=== PATIENT | female | born 1965 | race Caucasian/White ===

== ENCOUNTER → 2019-06-04 | Outpatient (CLI) | payer OTHER ==
[~2019-06-04] MED LIST: DIAZ-345 PO; FLUO20CA25 PO; HYDR50TA3; LAMO100T69 PO; LISI1TAB10; LVT.025T PO; PROZAC; SYNTHROID; VALIUM
--- NOTE | 2019-06-04 15:32 | Diagnostic Imaging Report ---
PROCEDURE: US Thyroid. TECHNIQUE: Multiple real-time grayscale images were obtained of the thyroid in various projections. INDICATION: Thyrotoxicosis with multinodular goiter. COMPARISON: No prior studies are available for comparison. FINDINGS: Right lobe of the thyroid measures 5.1 x 2.4 x 3.5 cm and the left lobe measures 4.0 x 2.2 x 2.0 cm. Isthmus is 11 mm in thickness. Both lobes of the thyroid are markedly heterogeneous. No discrete thyroid mass is detected. An area of lump in the posterior neck was also evaluated. There is a hypoechoic circumscribed mass just below the skin surface at this location measuring 2.1 x 1.5 x 0.7 cm. This does demonstrate internal echoes. No definite vascularity is seen. IMPRESSION: 1. Thyromegaly and thyroid heterogeneity without evidence of discrete mass. 2. Circumscribed ovoid hypoechoic mass at the area of palpable abnormality in the posterior neck just below the skin surface, nonspecific. An enlarged sebaceous cyst or perhaps enlarged lymph node cannot be entirely excluded. Close interval clinical follow-up is recommended. If this persists, excisional biopsy could be performed. Dictated by: Dictated on workstation # [id number]
== END ==
LOC: RAD 10:23
PROVIDERS: ATTEND Nurse Practitioner Family
DX: Z00.01 Encounter for general adult medical examination with abnormal findings (principal); E05.20 Thyrotoxicosis with toxic multinodular goiter without thyrotoxic crisis or storm; E01.0 Iodine-deficiency related diffuse (endemic) goiter; R22.1 Localized swelling, mass and lump, neck; R53.83 Other fatigue; Z72.0 Tobacco use; Z71.6 Tobacco abuse counseling
CPT/HCPCS: 76536

== ENCOUNTER → 2019-07-08 | Outpatient (CLI) | payer OTHER ==
--- NOTE | 2019-07-09 11:40 | Diagnostic Imaging Report ---
EXAM: Nuclear Medicine thyroid imaging and uptake. DATE: July 09, 2019. INDICATION: 54-year-old female, goiter. COMPARISON: Thyroid ultrasound June 04, 2019. FINDINGS: 199 ?Ci of I-123 was administered. Subsequent scintigraphic images of the thyroid were obtained in multiple projections. 6 and 24-hour thyroid uptake rise were obtained. 4 hour thyroid uptake is calculated at 26%. 24-hour thyroid uptake is calculated at 42%. Normal range for uptake at 4-6 hours (5-20%). Normal range of uptake at 24 hours (10-35%). There is diffuse radiotracer uptake throughout the right and left lobes of the thyroid. There is no identified radiotracer avid or photopenic nodule. IMPRESSION: Abnormally elevated thyroid uptake values with diffuse radiotracer uptake throughout the thyroid. This can be seen with Graves' disease. Recommend correlation with laboratory analysis. Dictated by: Dictated on workstation # [id number]
== END ==
LOC: CARD 10:35
PROVIDERS: ATTEND Internal Medicine Endocrinology, Diabetes & Metabolism
DX: E04.9 Nontoxic goiter, unspecified (principal); E05.90 Thyrotoxicosis, unspecified without thyrotoxic crisis or storm
CPT/HCPCS: 78014

== ENCOUNTER → 2021-06-08 | Outpatient (CLI) | payer OTHER ==
--- NOTE | 2021-06-08 17:25 | Diagnostic Imaging Report ---
PROCEDURE: US Thyroid. TECHNIQUE: Multiple real-time grayscale images were obtained of the thyroid in various projections. INDICATION: Goiter COMPARISON: 06/04/2019 FINDINGS: The right lobe of the thyroid gland is mildly prominent and heterogeneous measuring 4.4 x 2.4 x 2.0 cm. No discrete thyroid nodule. The left lobe of the thyroid gland is borderline enlarged and heterogeneous without discrete nodule. The isthmus is significantly thickened measuring up to 0.8 cm. Within the right occipital region, there is an ovoid avascular hypoechoic lesion measuring 2.5 x 0.9 x 2.0 cm. This demonstrates posterior acoustic enhancement. No internal vascularity. This appears minimally more prominent than on the prior examination when it measured 2.1 x 1.5 x 0.7 cm. IMPRESSION: Thyromegaly and heterogeneity of the thyroid gland is again identified without discrete thyroid nodule. This appears similar to the prior exam. Hypoechoic mass lesion within the right occipital location which is palpable appears slightly increased in size since the prior examination. Prior considerations remain unchanged, including a sebaceous cyst or potentially enlarged lymph node. Given that this has increased in size, consideration for a fine needle aspiration is recommended. Dictated by: Dictated on workstation # [id number]
== END ==
LOC: RAD 12:00
PROVIDERS: ATTEND Internal Medicine Endocrinology, Diabetes & Metabolism
DX: E01.0 Iodine-deficiency related diffuse (endemic) goiter (principal); E07.89 Other specified disorders of thyroid
CPT/HCPCS: 76536

== ENCOUNTER 2021-06-12 10:06 | Outpatient (RCR) | payer OTHER | END 2021-06-25 | disposition home or self-care (01) | LOC: ONC 10:06 | PROVIDERS: ATTEND Internal Medicine Hematology & Oncology | DX: E01.0 Iodine-deficiency related diffuse (endemic) goiter (principal); Z53.9 Procedure and treatment not carried out, unspecified reason ==

== ENCOUNTER → 2021-07-09 | Outpatient (CLI) | payer OTHER ==
[~2021-07-09] VITALS: Ht 163 cm; Wt 68.0 kg
[~2021-07-09] MED LIST changes: +LIDOCAINE 1% INJ 20 ML VIAL INJ ONE
--- NOTE | 2021-07-09 16:06 | Diagnostic Imaging Report ---
INDICATION: Lump in the occipital region. Patient presents for ultrasound-guided aspiration and potential biopsy. DETAILS OF THE PROCEDURE: The patient was brought to the procedure room and placed on the table in the prone position. Ultrasound imaging of the posterior neck was performed to evaluate for an appropriate entry site. The posterior neck was then prepped and draped in the usual sterile fashion. A small amount of 1% lidocaine was utilized for local anesthesia. An 18-gauge needle was advanced into the circumscribed hypoechoic lesion just below the skin surface in the posterior neck. Attempted aspiration was performed; however, no fluid could be removed. Next, multiple core samples of the lesion were obtained with an 18-gauge [place] needle. The needle was removed and hemostasis was obtained. The patient tolerated the procedure well and left the Department in stable condition. IMPRESSION: Successful ultrasound-guided core biopsy of the circumscribed hypoechoic nodule in the posterior neck soft tissues. Pathology results are currently pending. Dictated by: Dictated on workstation # [id number]
== END ==
LOC: RAD 14:30
PROVIDERS: ATTEND Surgery
DX: R22.1 Localized swelling, mass and lump, neck (principal)
CPT/HCPCS: 76942